=== PATIENT | male | born 1970 | race Caucasian/White ===

== ENCOUNTER 2016-09-20 10:19 | Emergency (ER) | payer OTHER ==
[~2016-09-20] VITALS: Ht 182.9 cm; Wt 93.1 kg
[2016-09-20 10:25] VITALS: TEMP 36.8; Ht 182.9 cm; Wt 93.1 kg
[2016-09-20] MEDS ORDERED: SODIUM CHLORIDE 0.9% 1000ML 1,000 ML IV STA (10:46)
[2016-09-20 10:53] LABS: BASO % 0.6 %; BASO ABS # 0.05 K/uL (0-0.2); COMPLETE YES; EOS % 0.9 %; HEMATOCRIT 41.4 % (42-52); IG% 0.5 %; LYMPH % 28.8 %; LYMPH ABS # 2.27 K/uL (1.2-3.4); MEAN CELL VOLUME 85.2 fL (80-100); MEAN CORPUSCULAR HGB CONC 35.3 g/dl (32-36); MEAN PLATELET VOLUME 11.5 fL (7.4-10.4); NEUT % 58.2 %; PLATELET COUNT 189 K/uL (130-400); RED BLOOD COUNT 4.86 M/uL (4.7-6.1); WHITE BLOOD COUNT 7.88 K/uL (4.8-10.8)
[2016-09-20 11:02] LABS: URINE APPEARANCE CLEAR (CLEAR); URINE BILIRUBIN NEG (NEG); URINE COLOR YELLOW; URINE NITRITE NEG (NEG); UROBILINOGEN NEG (NEG)
[2016-09-20] MEDS ORDERED: DEXT1CAP9 PO (11:02)
[2016-09-20] MEDS ORDERED: IBUP-103 PO (11:02)
[2016-09-20] MEDS ORDERED: PSEU120T2 PO (11:02)
[2016-09-20] MEDS ORDERED: BUPR-79 PO (11:02)
[2016-09-20 11:13] LABS: MANUAL MICROSCOPIC REQUIRED? NO; REVIEW REQ? NO
[2016-09-20 11:14] LABS: ALT/SGPT 43 U/L (12-78); AST/SGOT 23 U/L (15-37); BLOOD UREA NITROGEN 11 mg/dl (7-18); BUN/CREATININE RATIO 11.4 (10-20); CALCIUM 8.7 mg/dl (8.5-10.1); CARBON DIOXIDE 26 mmol/L (21-32); CHLORIDE 106 mmol/L (98-107); GLUCOSE 74 mg/dl (70-99); SODIUM 141 mmol/L (136-145)
[2016-09-20 11:22] LABS: ALKALINE PHOSPHATASE 71 U/L (45-117)
--- NOTE | 2016-09-20 11:25 | DIAGNOSTIC IMAGING REPORT ---
CHEST ONE VIEW PORTABLE CLINICAL HISTORY: Altered mental status, weakness. COMPARISON STUDY: 04/28/2006 FINDINGS: The cardiac and mediastinal contours remain stable. There is no focal pulmonary consolidation. There is no failure. There are no pleural effusions. There is a 16 mm left upper lung zone nodule versus summation. A follow-up PA and lateral view of the chest is recommended.[ IMPRESSION: 1. 16 mm left upper lung zone nodule versus summation. A follow-up PA and lateral study the chest is recommended 2. No evidence of failure. No evidence of focal pelvic consolidation. Electronically signed by: Ivan Hylton M.D. 09/20/2016 11:24 AM Dictated Date/Time: 09/20/2016 11:22 AM
--- NOTE | 2016-09-20 11:34 | DIAGNOSTIC IMAGING REPORT ---
CT HEAD WITHOUT CONTRAST (CT) CLINICAL HISTORY: Altered mental status, weakness. COMPARISON STUDY: No previous studies for comparison. TECHNIQUE: Axial CT of the brain is performed from the vertex to the skull base. IV contrast was not administered for this examination. CT DOSE: 614.27 mGy.cm FINDINGS: No intra or extra-axial mass lesions are visualized. There is no CT evidence of acute cortical infarction. There is no evidence of midline shift. There is no acute hemorrhage. No calvarial fractures are visualized. There are patchy white matter hypodensities likely on a small vessel basis. There is cerebellar atrophy. There is no evidence of pathologic ventricular dilatation. There is no acute sinusitis. There is an equivocal old left maxilla sinus fracture. IMPRESSION: 1. No acute intracranial findings. 2. Cerebellar atrophy. 3. Mild white matter disease, likely a small vessel basis Electronically signed by: Ivan Hylton M.D. 09/20/2016 11:33 AM Dictated Date/Time: 09/20/2016 11:31 AM
--- NOTE | 2016-09-20 13:08 | DIAGNOSTIC IMAGING REPORT ---
LATERAL VIEW THE CHEST CLINICAL HISTORY: Altered mental status and weakness COMPARISON STUDY: AP view the chest dated 09/12/2016 FINDINGS: No abnormalities are visualized on this lateral view the chest. As was stated previously, a PA view of the chest is recommended to help differentiate a left upper lobe pulmonary nodule from a summation.[ IMPRESSION: No abnormalities identified in this lateral view the chest. Electronically signed by: Ivan Hylton M.D. 09/20/2016 1:07 PM Dictated Date/Time: 09/20/2016 1:05 PM
[2016-09-20 13:38] VITALS: BP 137/79; PULSE 69; O2SAT 95
--- NOTE | 2016-09-20 14:49 | EMERGENCY ROOM VISIT NOTE ---
History Report prepared by Angelica: Gagan Vega Under the Supervision of: Dr. Butch Blas D.O. First contact with patient: 10:31 Chief Complaint: TACHYCARDIA Stated Complaint: RACING HEART-FAINTED Nursing Triage Summary: Triage ntoe: pt reports "i had a heart episode in the middle of the night." pt reports at approx 0530 he felt as though his heart was beating fast and then he went to the bathroom and when he stood up he passed out. pt reports "i still feel like my heart is beating fast and i feel weak." pt denies any cardiac hx. pt reports "i think it is from medication i started taking wellburtrin last week and i have had a cold and took some medication for that so maybe there was an interaction. History of Present Illness The patient is a 45 year old male who presents to the Emergency Room with complaints of a resolved episode of syncope that occurred at approximately 0515 this morning. The patient woke up at approximately 0500 and felt his heart racing. The patient then went to his bathroom. When he stood up from the toilet he became lightheaded and then passed out. The patient fell onto a laundry hamper and did not sustain any injuries. He notes that his heart was racing at that time. The patient did not hit his head. The patient has had cold symptoms for the past four days, including a low-grade fevers and a cough that produces yellow mucous. He has a slight headache and feels dehydrated. The patient started Wellbutrin over a week ago. He started taking it BID several days ago. The patient notes that he often feels lightheaded when he stands up too quickly. The patient has not been on any long trips recently. The patient denies any personal history of POTS, cancer, heart arrhythmias, a-fib or a- flutter. He denies any personal or family history of blood clots, or heart disease. He does have a history of high cholesterol, which he is not medicated for. The patient does not know of any family history of sudden . Patient denies change in vision, fevers greater than 100.4, chest pain, shortness of breath, hemoptysis, nausea, vomiting, diarrhea, pain with urination, melena, or leg swelling. Source of History: patient Onset: 0515 this morning Position: other (global) Quality: other (syncope) Timing: resolved Associated Symptoms: + cough, + headache, No SOB, No chest pain, No diarrhea , No fevers, No melena, No nausea, No urinary symptoms, No vomiting Review of Systems See HPI for pertinent positives & negatives. A total of 10 systems reviewed and were otherwise negative. Past Medical & Surgical Medical Problems: (1) HLD (hyperlipidemia) Family History FH: cancer Social History Smoking Status: Never Smoker Current/Historical Medications Scheduled Bupropion (Wellbutrin Sr), 150 MG PO BID Dextromethorphan-Phenylephrine (Vicks Dayquil Cold & Flu), 1 CAP PO DAILY Scheduled PRN Ibuprofen Tab (Advil), 400 MG PO UD PRN for Headache or Pain Pseudoephedrine Hcl (Sudafed 12 Hour), 120 MG PO UD PRN for illness Allergies Coded Allergies: No Known Allergies (Verified , 09/20/16) Physical Exam Vital Signs Date Time Temp Pulse Resp B/P Pulse Ox O2 Delivery O2 Flow Rate FiO2 09/20/16 13:38 69 16 137/79 95 09/20/16 12:35 78 18 130/69 97 Room Air 09/20/16 10:55 70 18 128/73 96 Room Air 79 133/82 83 133/82 09/20/16 10:40 84 09/20/16 10:38 Room Air 09/20/16 10:25 36.8 89 18 137/84 97 Room Air Physical Exam GENERAL: Sitting up in bed, no acute distress, nontoxic. EYE EXAM: normal conjunctiva, PERRL and EOM's intact OROPHARYNX: no exudate, no erythema, lips, buccal mucosa, and tongue normal and mucous membranes are moist NECK: supple, no nuchal rigidity, no adenopathy, non-tender LUNGS: Clear to auscultation. Normal chest wall mechanics HEART: no murmurs, S1 normal and S2 normal ABDOMEN: abdomen soft, non-tender, normo-active bowel sounds, no masses, no rebound or guarding. BACK: Back is symmetrical on inspection and there is no deformity, no midline tenderness, no CVA tenderness. SKIN: no rashes and no bruising UPPER EXTREMITIES: upper extremities are grossly normal. LOWER EXTREMITIES: No pitting edema. Calves are equal bilateral NEURO EXAM: Normal sensorium, cranial nerves II-XII intact, normal speech, no weakness of arms, no weakness of legs. No drift. Finger to nose intact. Gross sensation intact. Medical Decision & Procedures ER Provider Diagnostic Interpretation: Xray results per the radiologist and my interpretation. Other results have been interpreted by the radiologist and reviewed by me. CHEST ONE VIEW PORTABLE CLINICAL HISTORY: Altered mental status, weakness. COMPARISON STUDY: 04/28/2006 FINDINGS: The cardiac and mediastinal contours remain stable. There is no focal pulmonary consolidation. There is no failure. There are no pleural effusions. There is a 16 mm left upper lung zone nodule versus summation. A follow-up PA and lateral view of the chest is recommended.[ IMPRESSION: 1. 16 mm left upper lung zone nodule versus summation. A follow-up PA and lateral study the chest is recommended 2. No evidence of failure. No evidence of focal pelvic consolidation. Electronically signed by: Ivan Hylton M.D. 09/20/2016 11:24 AM Dictated Date/Time: 09/20/2016 11:[address] HEAD WITHOUT CONTRAST (CT) CLINICAL HISTORY: Altered mental status, weakness. COMPARISON STUDY: No previous studies for comparison. TECHNIQUE: Axial CT of the brain is performed from the vertex to the skull base. IV contrast was not administered for this examination. CT DOSE: 614.27 mGy.cm FINDINGS: No intra or extra-axial mass lesions are visualized. There is no CT evidence of acute cortical infarction. There is no evidence of midline shift. There is no acute hemorrhage. No calvarial fractures are visualized. There are patchy white matter hypodensities likely on a small vessel basis. There is cerebellar atrophy. There is no evidence of pathologic ventricular dilatation. There is no acute sinusitis. There is an equivocal old left maxilla sinus fracture. IMPRESSION: 1. No acute intracranial findings. 2. Cerebellar atrophy. 3. Mild white matter disease, likely a small vessel basis Electronically signed by: Ivan Hylton M.D. 09/20/2016 11:33 AM Dictated Date/Time: 09/20/2016 11:31 AM LATERAL VIEW THE CHEST CLINICAL HISTORY: Altered mental status and weakness COMPARISON STUDY: AP view the chest dated 09/12/2016 FINDINGS: No abnormalities are visualized on this lateral view the chest. As was stated previously, a PA view of the chest is recommended to help differentiate a left upper lobe pulmonary nodule from a summation.[ IMPRESSION: No abnormalities identified in this lateral view the chest. Electronically signed by: Ivan Hylton M.D. 09/20/2016 1:07 PM Dictated Date/Time: 09/20/2016 1:05 PM Laboratory Results 09/20/16 10:38 Red Blood Count 4.86, Mean Corpuscular Volume 85.2, Mean Corpuscular Hemoglobin 30.0, Mean Corpuscular Hemoglobin Concent 35.3, Mean Platelet Volume 11.5, Neutrophils (%) (Auto) 58.2, Lymphocytes (%) (Auto) 28.8, Monocytes (%) (Auto) 11.0, Eosinophils (%) (Auto) 0.9, Basophils (%) (Auto) 0.6, Neutrophils # (Auto ) 4.58, Lymphocytes # (Auto) 2.27, Monocytes # (Auto) 0.87, Eosinophils # (Auto ) 0.07, Basophils # (Auto) 0.05 09/20/16 10:38 Test 09/20/16 10:32 09/20/16 10:38 09/20/16 10:54 Urine Color YELLOW Urine Appearance CLEAR (CLEAR) Urine pH 7.0 (4.5-7.5) Urine Specific Prentiss 1.000 (1.000-1.030) Urine Protein NEG (NEG) Urine Glucose (UA) NEG (NEG) Urine Ketones NEG (NEG) Urine Occult Blood NEG (NEG) Urine Nitrite NEG (NEG) Urine Bilirubin NEG (NEG) Urine Urobilinogen NEG (NEG) Urine Leukocyte Esterase NEG (NEG) White Blood Count 7.88 K/uL (4.8-10.8) Red Blood Count 4.86 M/uL (4.7-6.1) Hemoglobin 14.6 g/dL (14.0-18.0) Hematocrit 41.4 % (42-52) Mean Corpuscular Volume 85.2 fL (80-100) Mean Corpuscular Hemoglobin 30.0 pg (25-34) Mean Corpuscular Hemoglobin Concent 35.3 g/dl (32-36) Platelet Count 189 K/uL (130-400) Mean Platelet Volume 11.5 fL (7.4-10.4) Neutrophils (%) (Auto) 58.2 % Lymphocytes (%) (Auto) 28.8 % Monocytes (%) (Auto) 11.0 % Eosinophils (%) (Auto) 0.9 % Basophils (%) (Auto) 0.6 % Neutrophils # (Auto) 4.58 K/uL (1.4-6.5) Lymphocytes # (Auto) 2.27 K/uL (1.2-3.4) Monocytes # (Auto) 0.87 K/uL (0.11-0.59) Eosinophils # (Auto) 0.07 K/uL (0-0.5) Basophils # (Auto) 0.05 K/uL (0-0.2) RDW Standard Deviation 39.1 fL (36.4-46.3) RDW Coefficient of Variation 12.6 % (11.5-14.5) Immature Granulocyte % (Auto) 0.5 % Immature Granulocyte # (Auto) 0.04 K/uL (0.00-0.02) D-Dimer 340 ug/L FEU (0-500) Anion Gap 9.0 mmol/L (3-11) Est Creatinine Clear Calc Drug Dose 100.3 ml/min Estimated GFR () 103.4 Estimated GFR (Non- 89.2 BUN/Creatinine Ratio 11.4 (10-20) Calcium Level 8.7 mg/dl (8.5-10.1) Total Bilirubin 0.4 mg/dl (0.2-1) Direct Bilirubin < 0.1 mg/dl (0-0.2) Aspartate Amino Transf (AST/SGOT) 23 U/L (15-37) Alanine Aminotransferase (ALT/SGPT) 43 U/L (12-78) Alkaline Phosphatase 71 U/L (45-117) Troponin I < 0.015 ng/ml (0-0.045) Total Protein 7.7 gm/dl (6.4-8.2) Albumin 3.5 gm/dl (3.4-5.0) Bedside Glucose 77 mg/dl (70-99) Laboratory results per my review. Medications Administered Medications (Trade) Dose Ordered Sig/Radha Route Start Time Stop Time Status Last Admin Dose Admin Sodium Chloride (Nss 1000ml) 1,000 ml @ 999 mls/hr Q1H1M STAT IV 09/20/16 10:46 09/20/16 11:46 DC 09/20/16 10:51 999 MLS/HR ECG Indication: syncope Rate (beats per minute): 84 Rhythm: sinus with SA Findings: other (normal axis) ED Course ED COURSE: Vital signs were reviewed and were normal. The patients medical record was reviewed The above diagnostic studies were performed and reviewed. ED treatments and interventions as stated above. 1040: The patient was evaluated in room A3. A complete history and physical examination was performed. 1046: NSS 1000 ml @ 999 mls/hr. 1330: Upon reevaluation, the patient is stable.I discussed my findings with the patient and he understands and agrees with the treatment plan. Based on the patients age, coexisting illnesses, exam and lab findings the decision to treat as an outpatient was made. The patient remained stable while under my care. The patient appeared well at the time of discharge. Medical Decision Etiologies such as vasovagal event, infection, hypoglycemia, electrolyte abnormalities, cardiac sources, intracerebral event, toxicologic, neurologic, as well as others were entertained. Patient is a 45-year-old male who presents the ER for elevated heart rate. He notes that this started this morning when he sat up from bed. He rested and got up and felt better following feeling being lightheaded. He went and sat on the toilet following which he got up and he passed out. Patient has no other complaints at this time. He notes that he feels back to his baseline. Prior to going to bed late last night he took Sudafed and NyQuil. He also recently started while beach and last week. Patient denies any chest pain or shortness breath. No bright red blood per rectum. CBC along with BMP, LFTs, and troponin are unremarkable. D-dimer was negative. UA was negative. EKG was unremarkable. Again he had no chest pain or shortness breath. With a negative d-dimer and did not pursue this any further. He has no history of any sudden in his family at a young age. I do not believe that this was an arrhythmia. Patient is no other complaints at this time. His chest x-ray on the PA showed a possible mass but was not present on the lateral. He was updated and discharged with syncope which I believe is secondary to vasovagal or orthostatic. He does not remember feeling tachycardia sitting down although it could've also been related to the Sudafed and NyQuil that he is taking I recommended not taking any additional doses of this and following up with PCP. Discussed with Pt concerning signs and symptoms to watch out for. Pt was instructed to follow up with their PCP and discussed with the patient their option to return to the ED at anytime for persistent or worsening symptoms. The appropriate anticipatory guidance and out-patient management, including indications for return to the emergency department, were explained at length to the patient and understood. Impression Primary Impression: Syncope Additional Impression: Palpitations Scribe Attestation The scribe's documentation has been prepared under my direction and personally reviewed by me in its entirety. I confirm that the note above accurately reflects all work, treatment, procedures, and medical decision making performed by me. Departure Information Dispostion Home / Self-Care Referrals Gray Gamble D.O. (PCP) Forms HOME CARE DOCUMENTATION FORM, IMPORTANT VISIT INFORMATION, WORK / SCHOOL INSTRUCTIONS Patient Instructions My [facility], Syncope Causes Additional Instructions Please follow up with your primary care doctor with in the next 24 hours. Any worsening of your symptoms, please return to the ED immediately. This includes any chest pain, shortness breath, palpitations, recurrence of syncope, or any other concerning signs or symptoms of your standpoint. Please do not take any additional [id number] medications. Please refrain from driving the next 24 hours. Problem Qualifiers Primary Impression: Syncope Syncope type: unspecified Qualified Codes: R55 - Syncope and collapse
== END 2016-09-20 13:39 | disposition home or self-care (01) ==
LOC: C.EDB 10:20 → C.EDA 13:39
DX: R55 Syncope and collapse (principal); R00.2 Palpitations; E78.5 Hyperlipidemia, unspecified